=== PATIENT | female | born 1950 | race Caucasian/White ===

== ENCOUNTER → 2022-02-02 | Day surgery (SDC) | payer MEDICARE ==
[~2022-02-02] VITALS: Ht 167.6 cm; Wt 63.0 kg
[~2022-02-02] MED LIST: ATARAX,VISTARIL10 MG PO; BACTRIM DS 8001 TA1 PO; BUSPIRONE HCL10 MG PO; CREON DR 24,001 EACH PO; CREON1 ECC PO; CYCLOBENZAPRINE10 MG PO; CYTOTEC100 MCG PO; CYTOTEC200 MCG PO; Carafate1 GM PO; DIGOXIN125 MCG PO; FUROSEMIDE40 MG PO; HUMALOG100 UNIT/1 SC; HYDR12.5C PO; LEVEMIR FL100 UNIT/1 SC; METFORMIN HYD1000 MG PO; METOPROLOL SUCC50 M1 PO; NEURONTIN300 MG PO; NEXIUM40 MG PO; PANTOPRAZOLE SO40 MG PO; POTASSIUM CHLO20 ME3 PO; RYBELSUS3 MG PO; TRAMADOL HCL50 MG PO; TRELEGY ELLIPT1 EACH INH
[2022-02-02 07:15] VITALS: BP 163/74
[2022-02-02 08:11] VITALS: BP 139/55
[2022-02-02 08:26] VITALS: BP 137/68
[2022-02-02 08:41] VITALS: BP 158/73
== END | disposition home or self-care (01) ==
LOC: SDC 01-30 08:45
PROVIDERS: ATTEND Surgery
DX: K29.01 Acute gastritis with bleeding (principal); K29.50 Unspecified chronic gastritis without bleeding; J44.9 Chronic obstructive pulmonary disease, unspecified; E11.9 Type 2 diabetes mellitus without complications; I11.0 Hypertensive heart disease with heart failure; I50.9 Heart failure, unspecified; F41.9 Anxiety disorder, unspecified; Z87.891 Personal history of nicotine dependence; Z88.1 Allergy status to other antibiotic agents; Z98.890 Other specified postprocedural states; Z90.3 Acquired absence of stomach [part of]; Z79.899 Other long term (current) drug therapy

== ENCOUNTER 2022-03-09 20:48 | Emergency (ER) | payer MEDICARE, OTHER ==
[~2022-03-09] VITALS: Ht 167.6 cm; Wt 63.0 kg
[2022-03-09 21:07] VITALS: BP 157/73
[2022-03-09 21:39] LABS: BASO % 0.5 % (0.0-1.0); EOS # 0.2 10*3/uL (0.0-0.4); EOS % 3.4 % (1.0-4.0); HEMATOCRIT 36.5 % (37.0-47.0); LYMPH # 0.8 10*3/uL (1.3-4.4); LYMPH % 13.9 % (27.0-41.0); MEAN CELL VOLUME 79.7 fl (81.0-99.0); MEAN CORPUSCULAR HGB 21.8 pg (27.0-31.0); MEAN CORPUSCULAR HGB CONC 27.4 g/dl (33.0-37.0); MEAN PLATELET VOLUME 9.3 fl (9.6-12.3); MONO # 0.6 10*3/uL (0.1-1.0); MONO % 9.5 % (3.0-9.0); NEUT # 4.2 10*3/uL (2.3-7.9); PLATELET COUNT AUTOMATED 267 10*3/uL (130-400); RED BLOOD COUNT 4.58 10*6/uL (4.10-5.10); RED CELL DISTRI WIDTH 16.3 % (0-14.5); WHITE BLOOD COUNT 5.9 10*3/uL (4.8-10.8)
[2022-03-09 21:56] LABS: ALKALINE PHOSPHATASE 105 U/L (46-116); BUN 22 mg/dl (9-23); CHLORIDE 90 mmol/L (98-107); POTASSIUM 4.2 mmol/L (3.4-5.1); SGPT/ALT 22 U/L (10-49); TOTAL PROTEIN 8.1 gm/dL (6.0-8.0)
[2022-03-09] MEDS ORDERED: PREDNISONE10 MG PO (22:23)
== END 2022-03-09 23:17 | disposition home or self-care (01) ==
LOC: ED 20:48
PROVIDERS: Nurse Practitioner Family
DX: R23.3 Spontaneous ecchymoses (principal); E11.65 Type 2 diabetes mellitus with hyperglycemia; E87.1 Hypo-osmolality and hyponatremia; I50.9 Heart failure, unspecified; I11.0 Hypertensive heart disease with heart failure; J44.9 Chronic obstructive pulmonary disease, unspecified; Z79.899 Other long term (current) drug therapy; Z90.49 Acquired absence of other specified parts of digestive tract; Z98.890 Other specified postprocedural states